=== PATIENT | male | born 1955 | race Caucasian/White ===

== ENCOUNTER → 2017-05-17 | Outpatient (CLI) | payer MEDICARE, BC | LOC: RAD 11:16 | PROVIDERS: ATTEND Family Medicine | DX: Z02.9 Encounter for administrative examinations, unspecified (principal) ==

== ENCOUNTER → 2017-06-18 | Outpatient (CLI) | payer MEDICARE, BC | END | disposition home or self-care (01) | LOC: CFH 13:36 | PROVIDERS: ATTEND Internal Medicine Rheumatology | DX: Z13.820 Encounter for screening for osteoporosis (principal); M81.0 Age-related osteoporosis without current pathological fracture; M48.50XA Collapsed vertebra, not elsewhere classified, site unspecified, initial encounter for fracture; E29.1 Testicular hypofunction | CPT/HCPCS: 77080 ==

== ENCOUNTER → 2021-02-24 | Outpatient (CLI) | payer MEDICARE, BC | END | disposition home or self-care (01) | LOC: CFH 10:54 | PROVIDERS: ATTEND Family Medicine | DX: M81.0 Age-related osteoporosis without current pathological fracture (principal) | CPT/HCPCS: 77080 ==